=== PATIENT | male | born 1940 | race Caucasian/White ===

== ENCOUNTER 2017-06-15 14:16 | Emergency (ER) | payer MEDICARE, OTHER ==
--- NOTE | 2017-06-15 14:34 | ERPHSYRPT ---
- History of Present Illness Time Seen by Provider: 06/15/17 14:25 Historian: patient Exam Limitations: no limitations Patient Subjective Stated Complaint: c/o Chest pain began [id number] this morning while sitting at home, Pain in epigastric area, states belching a lot today Triage Nursing Assessment: C/o epigastric chest pain, pulses palp, lungs CTA Physician History: The patient is a 76-year-old male with family complaining of sudden onset of epigastric pain shooting through to his back that began shortly after eating toast and grapes for breakfast. He took 2 nitroglycerin without any improvement. He is not any more short of breath than usual. He was not sweaty. At the time he was not nauseated. He has a past medical history of cardiac stents, coronary artery disease, high cholesterol, diabetes, CHF, COPD, and BPH. His past surgical histories include appendectomy and TURP. Timing/Duration: today, hour(s) (5 1/2) Activities at Onset: none Quality: sharpness Location: epigastric Chest Pain Radiation: back Severity of Pain-Max: severe Severity of Pain-Current: severe Modifying Factors: Improves With: nitroglycerin (without change) Associated Symptoms: abdominal pain, back pain, No nausea, No vomiting Prior Chest Pain/Cardiac Workup: cardiac cath, recently seen/treated Nitro Today/Relief: 0.4 mg x 2, provided at home, no relief Aspirin Treatment Today: 325 mg x 1, provided by ED Allergies/Adverse Reactions: No Known Drug Allergies Allergy (Verified 11/13/16 12:40) Home Medications: Clopidogrel Bisulfate 75 mg [PLAVIX 75 MG Tablet] 75 mg PO DAILY 05/30/13 [History] Ezetimibe 10 mg [Zetia 10 MG] 10 mg PO DAILY 05/30/13 [History] Fenofibrate,Micronized 145 mg* [Tricor 145 MG] 145 mg PO HS 05/30/13 [History ] Fluoxetine HCl 20 mg [Prozac 20 MG] 20 mg PO DAILY 05/30/13 [History] Glycopyrrolate [Robinul] 2 mg PO HS 05/30/13 [History] Loratadine 10 mg [Claritin 10 mg] 10 mg PO HS 12/07/13 [History] Pravastatin Sodium [Pravachol] 40 mg PO HS 05/30/13 [History] Tamsulosin HCl 0.4 mg [Flomax 0.4 MG] 0.4 mg PO HS 05/30/13 [History] Aspirin [Aspirin EC] 81 mg PO DAILY 10/29/13 [History] Atenolol [Tenormin] 25 mg PO DAILY 10/29/13 [History] Ferrous Sulfate [Iron] 325 mg PO DAILY 10/29/13 [History] Insulin Glargine [Lantus Insulin] 30 unit SQ HS 10/29/13 [History] Omeprazole 20 MG [Prilosec 20 mg] 20 mg PO DAILY 10/29/13 [History] Potassium Chloride 10 Meq Tab* [Klor Con 10 MEQ] 70 meq PO BID 10/29/13 [ History] Torsemide [Demadex] 40 mg PO DAILY 10/29/13 [History] Vitamin B Complex 1 each PO DAILY 10/29/13 [History] Ascorbic Acid 500 mg [Vitamin C 500 MG] 1,000 mg PO DAILY 11/13/16 [ History] Niacin (Inositol Niacinate) [Niacin 500 mg Capsule] 1,000 mg PO DAILY 11/13/16 [ History] Paricalcitol 2.5 mcg PO DAILY 11/13/16 [History] Pyridoxine HCl (Vitamin B6) [Vitamin B-6] 200 mg PO BID 11/13/16 [History] Ropinirole 2Mg [Requip 2Mg Tab] 4 mg PO HS 11/13/16 [History] Ubidecarenone [Co Q-10] 200 mg PO DAILY 11/13/16 [History] Nitroglycerin 0.4 mg (Ed) [Nitrostat 0.4 MG (ED)] 1 tab SL Q5MIN PRN MR X 3 PRN 06/15/17 [History] Hx Tetanus, Diphtheria Vaccination/Date Given: Yes Hx Influenza Vaccination/Date Given: Yes Hx Pneumococcal Vaccination/Date Given: (unsure) Immunizations Up to Date: Yes - Review of Systems Constitutional: No Fever, No Chills Eyes: No Symptoms Respiratory: No Cough, No Dyspnea Cardiac: Chest Pain Abdominal/Gastrointestinal: Abdominal Pain, Nausea, No Vomiting Genitourinary Symptoms: No Dysuria Musculoskeletal: No Back Pain, No Neck Pain Skin: No Rash Neurological: No Dizziness, No Focal Weakness, No Sensory Changes Psychological: No Symptoms Endocrine: No Symptoms Hematologic/Lymphatic: No Symptoms Immunological/Allergic: No Symptoms All Other Systems: Reviewed and Negative - Past Medical History Pertinent Past Medical History: Yes Neurological History: No Pertinent History ENT History: No Pertinent History Cardiac History: Coronary Artery Disease, High Cholesterol Respiratory History: CHF, COPD, Sleep Apnea Endocrine Medical History: Diabetes Type I Musculoskeletal History: Arthritis GI Medical History: Diverticulitis History: Renal Disease Psycho-Social History: Depression Male Reproductive Disorders: Prostate Problems - Past Surgical History Past Surgical History: Yes Cardiac: Cardiac Catheterization, Cardiac Stent Gastrointestinal: Appendectomy Male Surgical History: Prostate Surgery Other Surgical History: fistula to left arm - Social History Smoking Status: Never smoker Exposure to second hand smoke: No Drug Use: none Patient Lives Alone: No - Nursing Vital Signs Nursing Vital Signs: Initial Vital Signs Temperature 97.3 F 06/15/17 14:17 Pulse Rate 56 L 06/15/17 14:17 Respiratory Rate 20 06/15/17 14:17 Blood Pressure 120/56 06/15/17 14:17 O2 Sat by Pulse Oximetry 97 06/15/17 14:17 Pain Scale Pain Intensity 5 - Physical Exam General Appearance: moderate distress Eye Exam: PERRL/EOMI, eyes nml inspection Ears, Nose, Throat Exam: normal ENT inspection, moist mucous membranes Neck Exam: normal inspection, non-tender, supple, full range of motion Respiratory Exam: normal breath sounds, chest tenderness (palpation of epigastric area reproduces pt's pain), lungs clear, No respiratory distress Cardiovascular Exam: regular rate/rhythm, murmur Gastrointestinal/Abdomen Exam: tenderness (epigastric) Rectal Exam: not done Back Exam: normal inspection, No CVA tenderness, No vertebral tenderness Extremity Exam: normal inspection, normal range of motion Neurologic Exam: alert, oriented x 3, cooperative, normal mood/affect, sensation nml, No motor deficits Skin Exam: normal color, warm, dry SpO2 Interpretation: normal SpO2: 97 Oxygen Delivery: Room Air - Course EKG Interpreted by Me: RATE, Sinus Rhythm, NORMAL AXIS, NORMAL QRS, NORMAL ST-T (no change compared to EKG 10/29/13.) - Radiology Exams Chest X-ray Interpretation: Interpreted by me, Negative (comp CXR 05/30/13.) Ordered Tests: Active Orders 24 hr Category Date Time Status EKG-ER Only STAT Care 06/15/17 14:39 Active IV Insertion STAT Care 06/15/17 14:39 Active Pulse Oximetry (ED) STAT Care 06/15/17 14:41 Active CHEST 2 VIEWS (PA AND LAT) Stat Exams 06/15/17 14:40 Taken CBC W DIFF Stat Lab 06/15/17 14:39 Completed CMP Stat Lab 06/15/17 14:39 Completed LIPASE Stat Lab 06/15/17 14:39 Completed NT PRO BNP Stat Lab 06/15/17 14:41 Completed TROPONIN Q3H Lab 06/15/17 14:43 Completed TROPONIN Q3H Lab 06/15/17 17:45 Ordered TROPONIN Q3H Lab 06/15/17 20:45 Ordered TROPONIN Q3H Lab 06/15/17 23:45 Ordered TROPONIN Q3H Lab 06/16/17 02:45 Ordered UA W/RFX UR CULTURE Stat Lab 06/15/17 14:40 Ordered Medication Summary Discontinued Medications Generic Name Dose Route Start Last Admin Trade Name Freq PRN Reason Stop Dose Admin Al Hydrox/Mg Hydrox/Simethicone Confirm 06/15/17 14:49 Maalox Es 30 Ml Unit Dose Administered 06/15/17 14:50 Dose 30 ml .ROUTE .STK-MED ONE Aspirin 324 mg 06/15/17 14:41 06/15/17 14:46 Baby Aspirin 81 Mg Chew PO 06/15/17 14:42 324 mg STAT ONE Administration Aspirin Confirm 06/15/17 14:48 Baby Aspirin 81 Mg Chew Administered 06/15/17 14:49 Dose 324 mg .ROUTE .STK-MED ONE Famotidine 20 mg 06/15/17 14:39 06/15/17 14:54 Pepcid 20 Mg Vial IV 06/15/17 14:40 20 mg STAT ONE Administration Famotidine Confirm 06/15/17 14:49 Pepcid 20 Mg Vial Administered 06/15/17 14:50 Dose 20 mg IV .STK-MED ONE Lidocaine HCl Confirm 06/15/17 14:49 Xylocaine Hcl Viscous * Administered 06/15/17 14:50 Dose 15 ml .ROUTE .STK-MED ONE Magnesium Hydroxide 45 ml 06/15/17 14:39 06/15/17 14:54 Gi Cocktail 45 Ml (Maalox/Lidocaine) PO 06/15/17 14:40 45 ml STAT ONE Administration Morphine Sulfate 4 mg 06/15/17 15:39 06/15/17 15:49 Morphine Sulfate 4 Mg Inj IV 06/15/17 15:40 4 mg STAT ONE Administration Morphine Sulfate Confirm 06/15/17 15:43 Morphine Sulfate 4 Mg Inj Administered 06/15/17 15:44 Dose 4 mg .ROUTE .STK-MED ONE Nitroglycerin 0.4 mg 06/15/17 14:41 06/15/17 14:46 Nitrostat 0.4 Mg (Ed) SL 06/15/17 14:42 0.4 mg STAT ONE Administration Nitroglycerin Confirm 06/15/17 14:48 Nitrostat 0.4 Mg (Ed) Administered 06/15/17 14:49 Dose 0.4 mg SL .STK-MED ONE Ondansetron HCl 4 mg 06/15/17 14:39 06/15/17 14:54 Zofran 4 Mg/2 Ml Vial IV 06/15/17 14:40 4 mg STAT ONE Administration Ondansetron HCl Confirm 06/15/17 14:48 Zofran 4 Mg/2 Ml Vial Administered 06/15/17 14:49 Dose 4 mg .ROUTE .STK-MED ONE Lab/Rad Data: Laboratory Result Diagrams 06/15/17 14:39 06/15/17 14:39 Laboratory Results 06/15/17 06/15/17 06/15/17 Range/Units 14:43 14:41 14:39 WBC (4.0-10.5) K/mm3 RBC (4.1-5.6) M/mm3 Hgb (12.5-18.0) gm/dl Hct (42-50) % MCV (78-100) fl MCH (26-32) pg MCHC (32-36) g/dl RDW (11.5-14.0) % Plt Count (150-450) K/mm3 MPV (6-9.5) fl Gran % (36.0-66.0) % Lymphocytes % (24.0-44.0) % Monocytes % (0.0-12.0) % Eosinophils % (0.00-5.0) % Basophils % (0.0-0.4) % Basophils # (0-0.4) Sodium 141 (136-145) mEq/L Potassium 3.9 (3.5-5.1) mEq/L Chloride 107 (98-107) mEq/L Carbon Dioxide 26.6 (21-32) mEq/L Anion Gap 11.3 (5-15) MEQ/L BUN 44 H (9-20) mg/dL Creatinine 2.97 H (0.55-1.30) mg/dl Estimated GFR 22 ML/MIN Glucose 162 H (70-110) MG/DL Calcium 10.4 H (8.5-10.1) mg/dL Total Bilirubin 0.60 (0.2-1.0) mg/dL AST 48 H (15-37) U/L ALT 39 (12-78) U/L Alkaline Phosphatase 58 (46-116) U/L Troponin I < 0.017 (0.000-0.056) ng/ml NT-Pro-B Natriuret Pep 2142 H (0-450) pg/ml Serum Total Protein 6.4 (6.4-8.2) gm/dL Albumin 3.3 L (3.4-5.0) g/dL Lipase 63 L (73-393) U/L 06/15/ Range/Units 14:39 WBC 5.0 (4.0-10.5) K/mm3 RBC 3.36 L (4.1-5.6) M/mm3 Hgb 10.6 L (12.5-18.0) gm/dl Hct 34.8 L (42-50) % MCV 103.6 H (78-100) fl MCH 31.5 (26-32) pg MCHC 30.5 L (32-36) g/dl RDW 14.6 H (11.5-14.0) % Plt Count 128 L (150-450) K/mm3 MPV 9.1 (6-9.5) fl Gran % 77.6 H (36.0-66.0) % Lymphocytes % 16.8 L (24.0-44.0) % Monocytes % 4.6 (0.0-12.0) % Eosinophils % 0.6 (0.00-5.0) % Basophils % 0.4 (0.0-0.4) % Basophils # 0.02 (0-0.4) Sodium (136-145) mEq/L Potassium (3.5-5.1) mEq/L Chloride (98-107) mEq/L Carbon Dioxide (21-32) mEq/L Anion Gap (5-15) MEQ/L BUN (9-20) mg/dL Creatinine (0.55-1.30) mg/dl Estimated GFR ML/MIN Glucose (70-110) MG/DL Calcium (8.5-10.1) mg/dL Total Bilirubin (0.2-1.0) mg/dL AST (15-37) U/L ALT (12-78) U/L Alkaline Phosphatase (46-116) U/L Troponin I (0.000-0.056) ng/ml NT-Pro-B Natriuret Pep (0-450) pg/ml Serum Total Protein (6.4-8.2) gm/dL Albumin (3.4-5.0) g/dL Lipase (73-393) U/L - Progress Progress: improved Air Movement: good Progress Note: 06/15/17 16:After a GI cocktail, famotidine 20 mg by IV, Zofran 4 mg by IV, the patient was feeling much better. The patient wanted some morphine and then was given morphine 4 mg by IV. Now the patient is feeling much better and wishes to go home. Blood Culture(s) Obtained: No Antibiotics given: No Counseled pt/family regarding: lab results, diagnosis, rad results - Departure Time of Disposition: 16:25 Departure Disposition: Home Clinical Impression: Reflux gastritis Condition: Stable Critical Care Time: No Referrals: HARRIS ALLISON [Primary Care Provider] - Additional Instructions: You have epigastric pain that was caused by reflux. You were given nitroglycerin 0.4 mg sublingual and aspirin 324 mg orally in the ER. You were also given a GI cocktail orally in the ER. You're also given famotidine 20 mg, Zofran 4 mg, and morphine 4 mg by IV in the ER. Eat a bland diet for the next 3 -4 days. If the pain returns, do not hesitate to return to the ER for reevaluation.
[2017-06-15] MEDS ORDERED: GI COCKTAIL 45 ML (Maalox/Lidocaine) PO ONE (14:39)
[2017-06-15] MEDS ORDERED: Zofran 4 MG/2 ML VIAL IV ONE (14:39)
[2017-06-15] MEDS ORDERED: Pepcid 20 MG VIAL IV ONE ×2 (14:39→14:49)
[2017-06-15] MEDS ORDERED: Nitrostat 0.4 MG (ED) SL ONE ×2 (14:41→14:48)
[2017-06-15] MEDS ORDERED: BABY ASPIRIN 81 MG CHEW PO ONE (14:41)
[2017-06-15] MEDS ORDERED: BABY ASPIRIN 81 MG CHEW ONE (14:48)
[2017-06-15] MEDS ORDERED: Zofran 4 MG/2 ML VIAL ONE (14:48)
[2017-06-15] MEDS ORDERED: MAALOX ES 30 ML UNIT DOSE ONE (14:49)
[2017-06-15] MEDS ORDERED: XYLOCAINE HCl Viscous ONE (14:49)
[2017-06-15 15:00] LABS: BASOPHIL % 0.4 % (0.0-0.4); Eosinophil % 0.6 % (0.00-5.0); Granulocytes % 77.6 % (36.0-66.0); Lymphocytes % 16.8 % (24.0-44.0); Mean Cell Volume 103.6 fl (78-100); Mean Corpuscular Hemoglobin 31.5 pg (26-32); Mean Platelet Volume 9.1 fl (6-9.5); Monocytes % 4.6 % (0.0-12.0); Platelet Count 128 K/mm3 (150-450); Red Blood Count 3.36 M/mm3 (4.1-5.6); Red Cell Distribution Width 14.6 % (11.5-14.0)
[2017-06-15 15:08] LABS: ALBUMIN 3.3 g/dL (3.4-5.0); ANION GAP 11.3 MEQ/L (5-15); BILIRUBIN,TOTAL 0.6 mg/dL (0.2-1.0); Carbon Dioxide 26.6 mEq/L (21-32); Potassium 3.9 mEq/L (3.5-5.1); Total Protein 6.4 gm/dL (6.4-8.2)
[2017-06-15] MEDS ORDERED: MORPHINE SULFATE 4 MG INJ IV ONE (15:39)
[2017-06-15] MEDS ORDERED: MORPHINE SULFATE 4 MG INJ ONE (15:43)
[2017-06-15 15:50] VITALS: BP 118/48; PULSE 59; O2SAT 97
--- NOTE | 2017-06-15 18:47 | XRAY ---
Indication: Chest pain and nausea. Comparison: May 30, 2013. PA/lateral chest again hyperinflated without focal infiltrate, consolidation, or large effusion. Heart is not enlarged. Vascularity normal. Bony thorax intact again with mild osteopenia and degenerative changes. Impression: Stable nonacute hyperinflated chest with chronic features.
== END 2017-06-15 16:46 | disposition home or self-care (01) ==
LOC: ED 14:16
DX: K21.9 Gastro-esophageal reflux disease without esophagitis (principal); Z98.61 Coronary angioplasty status; I25.10 Atherosclerotic heart disease of native coronary artery without angina pectoris; E78.00 Pure hypercholesterolemia, unspecified; E11.9 Type 2 diabetes mellitus without complications; I50.9 Heart failure, unspecified; J44.9 Chronic obstructive pulmonary disease, unspecified; N40.0 Benign prostatic hyperplasia without lower urinary tract symptoms; R10.13 Epigastric pain
CPT/HCPCS: 36000; 36415; 71020; 80053; 83690; 83880; 84484; 85025; 93005; 99284; J2270; J2405; A9270-GY

== ENCOUNTER 2017-10-11 12:05 | Emergency (ER) | payer MEDICARE, OTHER ==
[2017-10-11 12:19] VITALS: O2SAT 100
--- NOTE | 2017-10-11 12:30 | ERPHSYRPT ---
- History of Present Illness Time Seen by Provider: 10/11/17 12:20 Source: patient, family Exam Limitations: no limitations Patient Subjective Stated Complaint: pt reports falling onto back-reports pain to back Triage Nursing Assessment: pt arrives ambulatory to ed with no difficulty-no limp noted-pale warm and dry-no abrasions or bruising to back-bruising noted to flank area-pt states it is not from fall-moving all extremities with ease Physician History: Pt was stepping off a small elevation in his yard, turned, when he lost his balance, fell on his back, hit the back of his head, c/o pain in his upper back. His brother witnessed the fall, denies LOC, patient is alert and oriented x4, denies SOB, chest pain, nausea, dizziness, other complaints. Occurred: just prior to arrival Reason for Fall: lost balance Injuries/Pain Location: head, back Loss of Consciousness: no loss of consciousness Quality: sharpness Severity of Pain-Max: moderate Severity of Pain-Current: mild Modifying Factors: Improves With: movement Associated Symptoms (Fall): back pain Allergies/Adverse Reactions: No Known Drug Allergies Allergy (Verified 10/11/17 12:19) Home Medications: Clopidogrel Bisulfate 75 mg [PLAVIX 75 MG Tablet] 75 mg PO DAILY 05/30/13 [History] Ezetimibe 10 mg [Zetia 10 MG] 10 mg PO DAILY 05/30/13 [History] Fenofibrate,Micronized 145 mg* [Tricor 145 MG] 145 mg PO HS 05/30/13 [History ] Fluoxetine HCl 20 mg [Prozac 20 MG] 20 mg PO DAILY 05/30/13 [History] Glycopyrrolate [Robinul] 2 mg PO HS 05/30/13 [History] Loratadine 10 mg [Claritin 10 mg] 10 mg PO HS 05/30/13 [History] Pravastatin Sodium [Pravachol] 40 mg PO HS 05/30/13 [History] Tamsulosin HCl 0.4 mg [Flomax 0.4 MG] 0.4 mg PO HS 05/30/13 [History] Aspirin [Aspirin EC] 81 mg PO DAILY 10/29/13 [History] Atenolol [Tenormin] 25 mg PO DAILY 10/29/13 [History] Ferrous Sulfate [Iron] 325 mg PO DAILY 10/29/13 [History] Insulin Glargine [Lantus Insulin] 30 unit SQ HS 10/29/13 [History] Omeprazole 20 MG [Prilosec 20 mg] 20 mg PO DAILY 10/29/13 [History] Potassium Chloride 10 Meq Tab* [Klor Con 10 MEQ] 70 meq PO BID 10/29/13 [ History] Torsemide [Demadex] 40 mg PO DAILY 10/29/13 [History] Vitamin B Complex 1 each PO DAILY 10/29/13 [History] Ascorbic Acid 500 mg [Vitamin C 500 MG] 1,000 mg PO DAILY 11/13/16 [ History] Niacin (Inositol Niacinate) [Niacin 500 mg Capsule] 1,000 mg PO DAILY 11/13/16 [ History] Paricalcitol 2.5 mcg PO DAILY 11/13/16 [History] Pyridoxine HCl (Vitamin B6) [Vitamin B-6] 200 mg PO BID 11/13/16 [History] Ropinirole 2Mg [Requip 2Mg Tab] 4 mg PO HS 11/13/16 [History] Ubidecarenone [Co Q-10] 200 mg PO DAILY 11/13/16 [History] Nitroglycerin 0.4 mg (Ed) [Nitrostat 0.4 MG (ED)] 1 tab SL Q5MIN PRN MR X 3 PRN 06/15/17 [History] Hx Tetanus, Diphtheria Vaccination/Date Given: Yes Hx Influenza Vaccination/Date Given: Yes Hx Pneumococcal Vaccination/Date Given: Yes Immunizations Up to Date: Yes - Review of Systems Constitutional: No Symptoms Musculoskeletal: Back Pain All Other Systems: Reviewed and Negative - Past Medical History Pertinent Past Medical History: Yes Neurological History: No Pertinent History ENT History: No Pertinent History Cardiac History: Coronary Artery Disease, High Cholesterol Respiratory History: CHF, COPD, Sleep Apnea Endocrine Medical History: Diabetes Type I Musculoskeletal History: Arthritis GI Medical History: Diverticulitis History: Renal Disease Psycho-Social History: Depression Male Reproductive Disorders: Prostate Problems - Past Surgical History Past Surgical History: Yes Cardiac: Cardiac Catheterization, Cardiac Stent Gastrointestinal: Appendectomy Male Surgical History: Prostate Surgery Other Surgical History: fistula to left arm - Social History Smoking Status: Never smoker Exposure to second hand smoke: No Drug Use: none Patient Lives Alone: No - Nursing Vital Signs Nursing Vital Signs: Initial Vital Signs Temperature 98.0 F 10/11/17 12:10 Pulse Rate 78 10/11/17 12:10 Respiratory Rate 18 10/11/17 12:10 Blood Pressure 126/68 10/11/17 12:10 O2 Sat by Pulse Oximetry 100 10/11/17 12:10 Pain Scale Pain Intensity 6 - Michael Coma Score Best Eye Response (Michael): (4) open spontaneously Best Verbal Response (Michael): (5) oriented Best Motor Response ([place]): (6) obeys commands [place] Total: 15 - Physical Exam General Appearance: no apparent distress Head Injury: tenderness (occipital soft tissue, no swelling, hematoma.) Eye Exam: PERRL/EOMI, eyes nml inspection ENT Exam: airway nml, No evidence of ENT injury Neck Exam: supple, trachea midline, full range of motion, normal alignment, normal inspection, paraspinous muscle tender (diffisue, bilateral) Respiratory/Chest Exam: normal breath sounds, No chest tenderness, No respiratory distress, No ecchymosis, No crepitus Cardiovascular Exam: normal heart sounds, regular rate/rhythm, normal peripheral pulses, No murmur, No edema, No JVD Gastrointestinal Exam: soft, normal bowel sounds, No tenderness, No distention, No mass, No ecchymosis Back Exam: normal inspection, other (diffuse, bilateral, parathoracic tendernes , no swelling, bruise, or crepitations.), No CVA tenderness, No vertebral tenderness Extremity Exam: normal inspection, pelvis stable, No contusions Peripheral Pulses: carotid (R): 3+, carotid (L): 3+, dorsalis-pedis (R): 2+, dorsalis-pedis (L): 2+ Neurologic Exam: alert, oriented x 3, cooperative, normal mood/affect Skin Exam: normal color, warm, dry SpO2 Interpretation: normal SpO2: 100 Oxygen Delivery: Room Air - Course Nursing assessment & vital signs reviewed: Yes - Radiology Exams Chest X-ray Interpretation: Reviewed by me, Negative - CT Exams Head CT Interpretation: Negative, Tele-radiologist Report Cervical Spine CT Interpretation: Negative, Tele-radiologist Report Thoracic Spine CT Interpretation: Negative, Tele-radiologist Report, DJD Ordered Tests: Active Orders 24 hr Category Date Time Status CERVICAL SPINE WO CONTRAST [CT] Stat Exams 10/11/17 12:21 Completed CHEST 1 VIEW (PORTABLE) Stat Exams 10/11/17 12:21 Completed HEAD WITHOUT CONTRAST [CT] Stat Exams 10/11/17 12:21 Completed THORACIC SPINE W/O CONTRAST [CT] Stat Exams 10/11/17 12:21 Completed - Progress Progress: unchanged Progress Note: 10/11/17 13:43 Pt is comfortable, when resting, denies severe pain or difficulty breathing. 10/11/17 13:46 Test results discussed with patient and his brother, instructions, given, he was given Percocet 5/325 PO Q6h PRN, # 10 tablets. - Departure Time of Disposition: 13:43 Departure Disposition: Home Clinical Impression: Back contusion Qualifiers: Encounter type: initial encounter Laterality: unspecified laterality Qualified Code(s): S20.229A - Contusion of unspecified back wall of thorax, initial encounter Head contusion Qualifiers: Encounter type: initial encounter Contusion of head detail: scalp Qualified Code(s): S00.03XA - Contusion of scalp, initial encounter Contusion of back wall of thorax Qualifiers: Encounter type: initial encounter Laterality: unspecified laterality Qualified Code(s): S20.229A - Contusion of unspecified back wall of thorax, initial encounter Condition: Stable Critical Care Time: No Referrals: HARRIS ALLISON [Primary Care Provider] - Instructions: Contusion (DC), Minor Head Injury (DC) Additional Instructions: Rest x 3-4 days, apply moist heat to painful areas, return if severe headaches, vomiting, confusion, lethargy or difficulty breathing, fever>101 F!
--- NOTE | 2017-10-11 13:23 | XRAY ---
Indication: Pain following fall. Multiple contiguous axial images obtained through the head without contrast. Comparison: None Age-appropriate global atrophy and minimal periventricular degenerative micro-ischemia. No acute intracranial hemorrhage, abnormal extra-axial fluid collection, or mass effect. Fourth ventricle is midline without hydrocephalus. Bony calvarium intact. Visualized paranasal sinuses and mastoid air cells are clear. Impression: Nonacute senile brain. CTDI 49.27
--- NOTE | 2017-10-11 13:25 | XRAY ---
Indication: Pain following fall. Comparison: June 15, 2017. Portable chest remains hyperinflated and clear. Heart and mediastinal structures within normal limits. Bony thorax intact again with mild osteopenia and degenerative changes. Impression: Stable nonacute hyperinflated chest.
--- NOTE | 2017-10-11 13:29 | XRAY ---
Indication: Pain following fall. Multiple contiguous axial images obtained through the cervical spine. Sagittal and coronal reformatted images obtained. Comparison: None Axial images negative for acute fracture, suspicious bony lesions, or spinal canal stenosis. Minimal C4-C7 degenerative endplate spurring. Tiny C4-C5 and C7-T1 degenerative vacuum disc phenomena. Also mild multilevel bilateral degenerative facet hypertrophy, left greater than right. Sagittal and coronal reformatted images demonstrates normal alignment with mild multilevel disc space narrowing greatest at the C7-T1 level. No acute compression fracture, subluxation, or jumped facet. Normal-appearing craniocervical junction. Visualized noncontrasted soft tissues demonstrates mild bilateral carotid calcifications. CT head and CT thoracic spine reported separately. Impression: 1. Negative acute fracture/subluxation. 2. Multilevel degenerative changes. CT DI 93.46
--- NOTE | 2017-10-11 13:36 | XRAY ---
Indication: Pain following fall. Multiple contiguous axial images obtained through the thoracic spine. Sagittal and coronal reformatted images obtained. Comparison: None Axial images negative for acute fracture, suspicious bony lesions, or spinal canal stenosis. There are multilevel flowing bridging endplate osteophytes favoring diffuse idiopathic skeletal hyperostosis (also known as DISH). Sagittal and coronal reformatted images demonstrates with multilevel tiny Schmorl nodes. Disc spaces maintained. No acute compression fracture or subluxation. Visualized noncontrasted soft tissues demonstrates minimal bilateral pulmonary dependent atelectasis and hepatic/splenic calcified granulomas. CT cervical spine reported separately. Impression: 1. Negative acute fracture/subluxation. 2. Multilevel flowing osteophytes favoring DISH. 3. Incidental tiny Schmorl nodes and evidence for old granulomatous disease. CT DI 60.36
[2017-10-11 13:41] VITALS: BP 114/57; PULSE 70
== END 2017-10-11 13:53 | disposition home or self-care (01) ==
LOC: ED 12:05
DX: S20.229A Contusion of unspecified back wall of thorax, initial encounter (principal); S00.03XA Contusion of scalp, initial encounter; M54.9 Dorsalgia, unspecified; W01.198A Fall on same level from slipping, tripping and stumbling with subsequent striking against other object, initial encounter; Y93.9 Activity, unspecified; Y92.096 Garden or yard of other non-institutional residence as the place of occurrence of the external cause; E10.9 Type 1 diabetes mellitus without complications; Z79.4 Long term (current) use of insulin; I25.10 Atherosclerotic heart disease of native coronary artery without angina pectoris; E78.00 Pure hypercholesterolemia, unspecified; I50.9 Heart failure, unspecified; J44.9 Chronic obstructive pulmonary disease, unspecified; G47.30 Sleep apnea, unspecified; M19.90 Unspecified osteoarthritis, unspecified site; F32.9 Major depressive disorder, single episode, unspecified; N28.9 Disorder of kidney and ureter, unspecified; Z79.899 Other long term (current) drug therapy
CPT/HCPCS: 70450; 71045; 72125; 72128; 99283; 99284

== ENCOUNTER 2017-12-18 13:05 | Emergency (ER) | payer MEDICARE, OTHER ==
--- NOTE | 2017-12-18 14:20 | ERPHSYRPT ---
- History of Present Illness Time Seen by Provider: 12/18/17 14:02 Source: patient Exam Limitations: no limitations Patient Subjective Stated Complaint: Pt states "I was at dialysis this morning and this left ankle and foot just started to hurt something awful." Triage Nursing Assessment: Pt alert and oriented X 3, skin pwd PT ambulates with a slow limp. Pt left ankle slightly swollen, left foot slightly swollen. Physician History: The patient is a 77-year-old male complaining of worsening pain and swelling in his left ankle since yesterday. He denies injury to the ankle. It is painful for him to walk on it. Is painful for him to move it back and forth. He has a history of gout but has not taken medicine for gout for several years. His past medical history is significant for diabetes, dialysis, high cholesterol, GERD, CAD, hypertension, and BPH. Method of Injury: unknown Occurred: yesterday Quality: constant, sharpness Severity of Pain-Max: severe Severity of Pain-Current: severe Lower Extremities Pain: ankle: left Modifying Factors: Improves With: nothing Associated Symptoms: none Allergies/Adverse Reactions: No Known Drug Allergies Allergy (Verified 10/11/17 12:19) Home Medications: Clopidogrel Bisulfate 75 mg [PLAVIX 75 MG Tablet] 75 mg PO DAILY 05/30/13 [History] Ezetimibe 10 mg [Zetia 10 MG] 10 mg PO DAILY 05/30/13 [History] Fenofibrate,Micronized 145 mg* [Tricor 145 MG] 145 mg PO HS 05/30/13 [History ] Fluoxetine HCl 20 mg [Prozac 20 MG] 20 mg PO DAILY 05/30/13 [History] Glycopyrrolate [Robinul] 2 mg PO HS 05/30/13 [History] Loratadine 10 mg [Claritin 10 mg] 10 mg PO HS 05/30/13 [History] Pravastatin Sodium [Pravachol] 40 mg PO HS 05/30/13 [History] Tamsulosin HCl 0.4 mg [Flomax 0.4 MG] 0.4 mg PO HS 05/30/13 [History] Aspirin [Aspirin EC] 81 mg PO DAILY 10/29/13 [History] Atenolol [Tenormin] 25 mg PO DAILY 10/29/13 [History] Ferrous Sulfate [Iron] 325 mg PO DAILY 10/29/13 [History] Insulin Glargine [Lantus Insulin] 30 unit SQ HS 10/29/13 [History] Omeprazole 20 MG [Prilosec 20 mg] 20 mg PO DAILY 10/29/13 [History] Torsemide [Demadex] 40 mg PO DAILY 10/29/13 [History] Vitamin B Complex 1 each PO DAILY 10/29/13 [History] Ascorbic Acid 500 mg [Vitamin C 500 MG] 1,000 mg PO DAILY 11/13/16 [ History] Niacin (Inositol Niacinate) [Niacin 500 mg Capsule] 1,000 mg PO DAILY 11/13/16 [ History] Paricalcitol 2.5 mcg PO DAILY 11/13/16 [History] Pyridoxine HCl (Vitamin B6) [Vitamin B-6] 200 mg PO BID 11/13/16 [History] Ropinirole 2Mg [Requip 2Mg Tab] 4 mg PO HS 11/13/16 [History] Ubidecarenone [Co Q-10] 200 mg PO DAILY 11/13/16 [History] Nitroglycerin 0.4 mg (Ed) [Nitrostat 0.4 MG (ED)] 1 tab SL Q5MIN PRN MR X 3 PRN 06/15/17 [History] Hx Tetanus, Diphtheria Vaccination/Date Given: No Hx Influenza Vaccination/Date Given: Yes Hx Pneumococcal Vaccination/Date Given: No Immunizations Up to Date: Yes - Review of Systems Constitutional: No Fever, No Chills Eyes: No Symptoms Ears, Nose, & Throat: No Symptoms Respiratory: No Cough, No Dyspnea Cardiac: No Chest Pain, No Edema, No Syncope Abdominal/Gastrointestinal: No Abdominal Pain, No Nausea, No Vomiting, No Diarrhea Genitourinary Symptoms: No Dysuria Musculoskeletal: Joint Pain, Joint Swelling Skin: No Rash Neurological: No Dizziness, No Focal Weakness, No Sensory Changes Psychological: No Symptoms Endocrine: No Symptoms Hematologic/Lymphatic: No Symptoms Immunological/Allergic: No Symptoms All Other Systems: Reviewed and Negative - Past Medical History Pertinent Past Medical History: Yes Neurological History: No Pertinent History ENT History: No Pertinent History Cardiac History: Coronary Artery Disease, High Cholesterol Respiratory History: CHF, COPD, Sleep Apnea Endocrine Medical History: Diabetes Type I Musculoskeletal History: Arthritis GI Medical History: Diverticulitis History: Renal Disease Psycho-Social History: Depression Male Reproductive Disorders: Prostate Problems - Past Surgical History Past Surgical History: Yes Cardiac: Cardiac Catheterization, Cardiac Stent Gastrointestinal: Appendectomy Male Surgical History: Prostate Surgery Other Surgical History: fistula to left arm - Social History Smoking Status: Former smoker Exposure to second hand smoke: No Drug Use: none Patient Lives Alone: Yes - Nursing Vital Signs Nursing Vital Signs: Initial Vital Signs Temperature 97.6 F 12/18/17 13:12 Pulse Rate 67 12/18/17 13:12 Respiratory Rate 18 12/18/17 13:12 Blood Pressure 115/73 12/18/17 13:12 O2 Sat by Pulse Oximetry 98 12/18/17 13:12 Pain Scale Pain Intensity 5 - Physical Exam General Appearance: alert Eyes, Ears, Nose, Throat Exam: moist mucous membranes Neck Exam: non-tender, supple Cardiovascular/Respiratory Exam: chest non-tender, normal breath sounds, regular rate/rhythm, no respiratory distress Gastrointestinal/Abdominal Exam: non-tender, guarding Back Exam: normal inspection, No vertebral tenderness Hips Exam: bilateral: non-tender, normal inspection, normal range of motion Legs Exam: bilateral leg: non-tender, normal inspection, normal range of motion Knees Exam: bilateral knee: non-tender, normal inspection, normal range of motion Ankle Exam: right ankle: non-tender, normal inspection, normal range of motion, left ankle: limited range of motion, pain, soft tissue tenderness, swelling, other (mild erythema) Foot Exam: bilateral foot: non-tender, normal inspection, normal range of motion Neuro/Tendon Exam: normal sensation, normal motor functions Mental Status Exam: alert, oriented x 3, cooperative Skin Exam: normal color, warm, dry SpO2 Interpretation: normal SpO2: 98 Oxygen Delivery: Room Air Ordered Tests: Active Orders 24 hr Category Date Time Status BMP Stat Lab 12/18/17 14:35 Completed CBC W DIFF Stat Lab 12/18/17 14:35 Completed D-DIMER QUANTITATION Stat Lab 12/18/17 14:35 Received Uric Acid Stat Lab 12/18/17 14:35 Completed Lab/Rad Data: Laboratory Result Diagrams 12/18/17 14:35 12/18/17 14:35 Laboratory Results 12/18/17 12/18/17 12/18/17 Range/Units 14:35 14:35 14:35 WBC 6.4 (4.0-10.5) K/mm3 RBC 2.86 L (4.1-5.6) M/mm3 Hgb 9.9 L (12.5-18.0) gm/dl Hct 30.6 L (42-50) % MCV 107.0 H (78-100) fl MCH 34.6 H (26-32) pg MCHC 32.4 (32-36) g/dl RDW 13.5 (11.5-14.0) % Plt Count 144 L (150-450) K/mm3 MPV 8.4 (6-9.5) fl Gran % 68.4 H (36.0-66.0) % Eos # (Auto) 0.06 (0-0.5) Absolute Lymphs (auto) 1.37 (1.0-4.6) Absolute Monos (auto) 0.58 (0.0-1.3) Lymphocytes % 21.4 L (24.0-44.0) % Monocytes % 9.1 (0.0-12.0) % Eosinophils % 0.9 (0.00-5.0) % Basophils % 0.2 (0.0-0.4) % Absolute Granulocytes 4.38 (1.4-6.9) Basophils # 0.01 (0-0.4) Sodium 142 (137-145) mmol/L Potassium 3.7 (3.5-5.1) mmol/L Chloride 102 (98-107) mmol/L Carbon Dioxide 31 H (22-30) mmol/L Anion Gap 12.8 (5-15) MEQ/L BUN 47 H (9-20) mg/dL Creatinine 1.94 H (0.66-1.25) mg/dL Estimated GFR 35.9 ML/MIN Glucose 153 H (74-106) mg/dL Uric Acid 6.9 (3.5-7.2) mg/dL Calcium 10.0 (8.4-10.2) mg/dL - Departure Time of Disposition: 15:24 Departure Disposition: Home Clinical Impression: Left ankle pain Condition: Stable Critical Care Time: No Referrals: HARRIS ALLISON [Primary Care Provider] - Additional Instructions: You have left ankle pain and swelling. Your uric acid level was normal, however this does not exclude gout. Take prednisone 40 mg daily for 5 days. Take Tylenol 1000 mg every 6-8 hours as needed. Follow-up in one to 2 days if the condition does not respond. Prescriptions: Prednisone 20 mg [Deltasone 20 mg] 2 tab PO DAILY #10 tablet
[2017-12-18 14:54] LABS: BASOPHIL % 0.2 % (0.0-0.4); Basophil (Absolute #) 0.01 (0-0.4); Eosinophil % 0.9 % (0.00-5.0); Eosinophil (Absolute #) 0.06 (0-0.5); Granulocyte Absolute (ANC) 4.38 (1.4-6.9); Granulocytes % 68.4 % (36.0-66.0); Hematocrit 30.6 % (42-50); Hemoglobin 9.9 gm/dl (12.5-18.0); Lymphocyte (Absolute #) 1.37 (1.0-4.6); Lymphocytes % 21.4 % (24.0-44.0); Mean Corpuscular Hemoglobin 34.6 pg (26-32); Mean Corpuscular Hgb Concent. 32.4 g/dl (32-36); Mean Platelet Volume 8.4 fl (6-9.5); Monocyte (Absolute #) 0.58 (0.0-1.3); Monocytes % 9.1 % (0.0-12.0); Platelet Count 144 K/mm3 (150-450); Red Blood Count 2.86 M/mm3 (4.1-5.6); Red Cell Distribution Width 13.5 % (11.5-14.0); White Blood Count 6.4 K/mm3 (4.0-10.5)
[2017-12-18 15:10] LABS: ANION GAP 12.8 MEQ/L (5-15); Creatinine 1 1.94 mg/dL (0.66-1.25); Potassium 3.7 mmol/L (3.5-5.1)
[2017-12-18 15:38] VITALS: BP 134/58; PULSE 61; O2SAT 99
== END 2017-12-18 15:52 | disposition home or self-care (01) ==
LOC: ED 13:05
DX: M25.572 Pain in left ankle and joints of left foot (principal); M25.472 Effusion, left ankle; I25.10 Atherosclerotic heart disease of native coronary artery without angina pectoris; E78.00 Pure hypercholesterolemia, unspecified; J44.9 Chronic obstructive pulmonary disease, unspecified; G47.30 Sleep apnea, unspecified; E10.65 Type 1 diabetes mellitus with hyperglycemia; M19.90 Unspecified osteoarthritis, unspecified site; F32.9 Major depressive disorder, single episode, unspecified; N28.9 Disorder of kidney and ureter, unspecified; Z79.899 Other long term (current) drug therapy
CPT/HCPCS: 36415; 80048; 84550; 85025; 85379; 99283

== ENCOUNTER 2018-08-05 13:42 | Emergency (ER) | payer MEDICARE, OTHER ==
[2018-08-05 14:13] VITALS: O2SAT 96
--- NOTE | 2018-08-05 15:24 | XRAY ---
Indication: Right hip/leg pain. Multiple contiguous axial images obtained through the lumbar spine. Sagittal and coronal reformatted images obtained. Comparison: None Mild age-related bony osteopenia with multilevel endplate spurring. Axial images at the T12-L3 levels demonstrates degenerative vacuum disc phenomena. No large disc herniation or spinal canal stenosis. Facets are symmetric. At the L3-L4 level, there is mild annular disc osteophyte complex slightly effacing thecal sac and producing spinal canal narrowing and bilateral foraminal stenosis. No large disc herniation. Mild bilateral degenerative facet arthropathy. At the L4-L5 level, there is spinal canal and bilateral foraminal stenosis due to moderate annular disc osteophyte complex and moderate bilateral degenerative facet hypertrophy. Mean AP spinal canal diameter is 5-6 mm. Suspect impingement of the exiting right L4 nerve root. At the L5-S1 level, there is left foraminal narrowing due to broad-based disc osteophyte complex. No large central disc herniation or canal stenosis. Mild bilateral degenerative facet arthropathy. Sagittal and coronal reformatted images demonstrates normal alignment with multilevel disc space narrowing and multilevel Schmorl nodes. No acute compression fracture or subluxation. Visualized noncontrasted soft tissues demonstrates tiny gallstones, hepatic/splenic calcified granulomas, sigmoid diverticulosis, and mild scattered aortoiliac calcifications. Impression: 1. Osteopenia and multilevel degenerative disc disease. Greatest extent at L4-L5 level with there is spinal canal and foraminal stenosis detailed above. Outpatient MRI may yield further information. 2. Negative acute fracture/subluxation. 3. Incidental multilevel Schmorl nodes, gallstones, sigmoid diverticulosis, and evidence for old granulomatous disease. CTDI 58.64
[2018-08-05 15:37] VITALS: PULSE 87
--- NOTE | 2018-08-05 17:14 | ERPHSYRPT ---
- History of Present Illness Source: patient Exam Limitations: no limitations Patient Subjective Stated Complaint: patient states that he has had worsening hip and leg pain on the right side that started in May 2018. He has been in touch with a Dr to do surgery but needs to have an MRI and CT scan and X-Ray taken before he is accepted. Triage Nursing Assessment: patient states he has pain in his right hip and leg when relaxing at a 4, but anytime he moves it shoots to a 10. Patient is A &O X4. Lungs clear, skin pink warm and dry. He is a diabetic and is on dialysis. He reports feeling numb in his right lower extremity. Legs are swollen bilaterally and patient states this is chronic for him Physician History: Pt is a 77 y/o male with progressive weakness, and numbness of the R LE. Pt states, was diagnosed with sciatica in May, and had PT for a while with no improvement. Pt feels that any movement of his R LE causing him pain that moves from the buttox posteriorly towards the heel. Pt states, has decrease in sensation in that leg as well. Occurred: other (Getting progressivly worse over two months) Lower Extremities Pain: hip: right, leg: right, knee: right, thigh: right, foot : right, ankle: right, heel: right Modifying Factors: Improves With: nothing Associated Symptoms: other (change in sensation) Allergies/Adverse Reactions: No Known Drug Allergies Allergy (Verified 10/11/17 12:19) Home Medications: Clopidogrel Bisulfate 75 mg [PLAVIX 75 MG Tablet] 75 mg PO DAILY 05/30/13 [History] Ezetimibe 10 mg [Zetia 10 MG] 10 mg PO DAILY 05/30/13 [History] Fenofibrate,Micronized 145 mg* [Tricor 145 MG] 145 mg PO HS 05/30/13 [History ] Fluoxetine HCl 20 mg [Prozac 20 MG] 20 mg PO DAILY 05/30/13 [History] Glycopyrrolate [Robinul] 2 mg PO HS 05/30/13 [History] Loratadine 10 mg [Claritin 10 mg] 10 mg PO HS 05/30/13 [History] Pravastatin Sodium [Pravachol] 40 mg PO HS 05/30/13 [History] Tamsulosin HCl 0.4 mg [Flomax 0.4 MG] 0.4 mg PO HS 05/30/13 [History] Aspirin [Aspirin EC] 81 mg PO DAILY 10/29/13 [History] Atenolol [Tenormin] 25 mg PO DAILY 10/29/13 [History] Ferrous Sulfate [Iron] 325 mg PO DAILY 10/29/13 [History] Insulin Glargine [Lantus Insulin] 30 unit SQ HS 10/29/13 [History] Omeprazole 20 MG [Prilosec 20 mg] 20 mg PO DAILY 10/29/13 [History] Torsemide [Demadex] 40 mg PO DAILY 10/29/13 [History] Vitamin B Complex 1 each PO DAILY 10/29/13 [History] Ascorbic Acid 500 mg [Vitamin C 500 MG] 1,000 mg PO DAILY 11/13/16 [ History] Niacin (Inositol Niacinate) [Niacin 500 mg Capsule] 1,000 mg PO DAILY 11/13/16 [ History] Paricalcitol 2.5 mcg PO DAILY 11/13/16 [History] Pyridoxine HCl (Vitamin B6) [Vitamin B-6] 200 mg PO BID 11/13/16 [History] Ropinirole 2Mg [Requip 2Mg Tab] 4 mg PO HS 11/13/16 [History] Ubidecarenone [Co Q-10] 200 mg PO DAILY 11/13/16 [History] Nitroglycerin 0.4 mg (Ed) [Nitrostat 0.4 MG (ED)] 1 tab SL Q5MIN PRN MR X 3 PRN 06/15/17 [History] Hx Tetanus, Diphtheria Vaccination/Date Given: No Hx Influenza Vaccination/Date Given: No Hx Pneumococcal Vaccination/Date Given: No Immunizations Up to Date: Yes - Review of Systems Constitutional: No Fever, No Chills Respiratory: No Cough, No Dyspnea Cardiac: No Chest Pain, No Edema, No Syncope Abdominal/Gastrointestinal: No Abdominal Pain, No Nausea, No Vomiting, No Diarrhea Musculoskeletal: Arthralgias, Joint Pain Neurological: Parasthesia - Past Medical History Pertinent Past Medical History: Yes Neurological History: Peripheral Neuropathy ENT History: No Pertinent History Cardiac History: Angina, Coronary Artery Disease, High Cholesterol, Other Respiratory History: CHF, COPD, Sleep Apnea Endocrine Medical History: Diabetes Type II Musculoskeletal History: Arthritis GI Medical History: No Pertinent History History: Dialysis, Renal Disease Psycho-Social History: Depression Male Reproductive Disorders: Prostate Problems Other Medical History: hypotension, TURP - Past Surgical History Past Surgical History: Yes Neuro Surgical History: No Pertinent History Cardiac: Cardiac Catheterization, Cardiac Stent Respiratory: No Pertinent History Gastrointestinal: Appendectomy Genitourinary: No Pertinent History Musculoskeletal: No Pertinent History Male Surgical History: Prostate Surgery Other Surgical History: fistula to left arm - Social History Smoking Status: Former smoker Exposure to second hand smoke: No Drug Use: none Patient Lives Alone: Yes - Nursing Vital Signs Nursing Vital Signs: Initial Vital Signs Temperature 97.6 F 08/05/18 13:43 Pulse Rate 59 L 08/05/18 13:43 Respiratory Rate 18 08/05/18 13:43 Blood Pressure 114/47 08/05/18 13:43 O2 Sat by Pulse Oximetry 96 08/05/18 13:43 Pain Scale Pain Intensity [Right Hip] 4 Pain Intensity 4 - Physical Exam General Appearance: alert Cardiovascular/Respiratory Exam: chest non-tender, normal breath sounds, regular rate/rhythm, no respiratory distress Gastrointestinal/Abdominal Exam: non-tender, guarding Hips Exam: right: limited range of motion, pain Legs Exam: right leg: limited range of motion, pain Knees Exam: right knee: pain Neuro/Tendon Exam: sensory deficit (R LE) SpO2: 96 - Course Nursing assessment & vital signs reviewed: Yes - CT Exams Lumbar Spine CT Interpretation: Other (L4-5 spinal canal and foraminal stenosis) Ordered Tests: Active Orders 24 hr Category Date Time Status LUMBAR SPINE W/O [CT] Stat Exams 08/05/18 14:30 Completed - Progress Progress: unchanged Progress Note: 08/05/18 17:20 Pt was evaluated and CT was ordered. Pt has spinal stenosis and foraminal stenosis of L4-5 Discussed with : Emertia Allison Will see patient in: office (F/U with PCP and Neurology/Neurosurg) - Departure Time of Disposition: 17:19 Departure Disposition: Home Clinical Impression: Spinal stenosis at L4-L5 level Condition: Stable Critical Care Time: No Referrals: HARRIS ALLISON [Primary Care Provider] - Additional Instructions: F/U with PCP to evaluate and decide on imaging (MRI), with referral to neurosurg or neurology.
[2018-08-05 17:40] VITALS: BP 130/72
== END 2018-08-05 17:30 | disposition home or self-care (01) ==
LOC: ED 13:42
DX: M48.061 Spinal stenosis, lumbar region without neurogenic claudication (principal)
CPT/HCPCS: 72131; 99284

== ENCOUNTER 2019-04-09 19:50 | Emergency (ER) | payer MEDICARE, OTHER ==
--- NOTE | 2019-04-09 20:00 | ERPHSYRPT ---
- History of Present Illness Time Seen by Provider: 04/09/19 20:00 Source: patient, family Exam Limitations: no limitations Physician History: 78 y/o white male presents with right ankle and foot pain and swelling after a fall earlier today. pt states he was walking down an decline and go ahead of himself. no other injuries or complaints. hurts to bear weight but he can. Method of Injury: fell Occurred: this evening Quality: aching Severity of Pain-Max: mild Severity of Pain-Current: mild Lower Extremities Pain: foot: right, ankle: right Modifying Factors: Improves With: movement Associated Symptoms: other (hurts to bear weight) Allergies/Adverse Reactions: No Known Drug Allergies Allergy (Verified 10/11/17 12:19) Home Medications: Clopidogrel Bisulfate 75 mg [PLAVIX 75 MG Tablet] 75 mg PO DAILY 05/30/13 [History] Ezetimibe 10 mg [Zetia 10 MG] 10 mg PO DAILY 05/30/13 [History] Fenofibrate,Micronized 145 mg* [Tricor 145 MG] 145 mg PO HS 05/30/13 [History ] Fluoxetine HCl 20 mg [Prozac 20 MG] 20 mg PO DAILY 05/30/13 [History] Glycopyrrolate [Robinul] 2 mg PO HS 05/30/13 [History] Loratadine 10 mg [Claritin 10 mg] 10 mg PO HS 05/30/13 [History] Pravastatin Sodium [Pravachol] 40 mg PO HS 05/30/13 [History] Tamsulosin HCl 0.4 mg [Flomax 0.4 MG] 0.4 mg PO HS 05/30/13 [History] Aspirin [Aspirin EC] 81 mg PO DAILY 10/29/13 [History] Atenolol [Tenormin] 25 mg PO DAILY 10/29/13 [History] Ferrous Sulfate [Iron] 325 mg PO DAILY 10/29/13 [History] Insulin Glargine [Lantus Insulin] 30 unit SQ HS 10/29/13 [History] Omeprazole 20 MG [Prilosec 20 mg] 20 mg PO DAILY 10/29/13 [History] Torsemide [Demadex] 40 mg PO DAILY 10/29/13 [History] Vitamin B Complex 1 each PO DAILY 10/29/13 [History] Ascorbic Acid 500 mg [Vitamin C 500 MG] 1,000 mg PO DAILY 11/13/16 [ History] Niacin (Inositol Niacinate) [Niacin 500 mg Capsule] 1,000 mg PO DAILY 11/13/16 [ History] Paricalcitol 2.5 mcg PO DAILY 11/13/16 [History] Pyridoxine HCl (Vitamin B6) [Vitamin B-6] 200 mg PO BID 11/13/16 [History] Ropinirole 2Mg [Requip 2Mg Tab] 4 mg PO HS 11/13/16 [History] Ubidecarenone [Co Q-10] 200 mg PO DAILY 11/13/16 [History] Nitroglycerin 0.4 mg (Ed) [Nitrostat 0.4 MG (ED)] 1 tab SL Q5MIN PRN MR X 3 PRN 06/15/17 [History] Hx Tetanus, Diphtheria Vaccination/Date Given: No Hx Influenza Vaccination/Date Given: No Hx Pneumococcal Vaccination/Date Given: No - Review of Systems Constitutional: No Symptoms Eyes: No Symptoms Ears, Nose, & Throat: No Symptoms Respiratory: No Symptoms Cardiac: No Symptoms Abdominal/Gastrointestinal: No Symptoms Genitourinary Symptoms: No Symptoms Musculoskeletal: Fall, Injury (right foot and ankle) Neurological: No Symptoms Psychological: No Symptoms Endocrine: No Symptoms Hematologic/Lymphatic: No Symptoms Immunological/Allergic: No Symptoms All Other Systems: Reviewed and Negative - Past Medical History Pertinent Past Medical History: Yes Neurological History: Peripheral Neuropathy ENT History: No Pertinent History Cardiac History: Angina, Coronary Artery Disease, High Cholesterol, Other Respiratory History: CHF, COPD, Sleep Apnea Endocrine Medical History: Diabetes Type II Musculoskeletal History: Arthritis GI Medical History: No Pertinent History History: Dialysis, Renal Disease Psycho-Social History: Depression Male Reproductive Disorders: Prostate Problems Other Medical History: hypotension, TURP - Past Surgical History Past Surgical History: Yes Neuro Surgical History: No Pertinent History Cardiac: Cardiac Catheterization, Cardiac Stent Respiratory: No Pertinent History Gastrointestinal: Appendectomy Genitourinary: No Pertinent History Musculoskeletal: No Pertinent History Male Surgical History: Prostate Surgery Other Surgical History: fistula to left arm - Social History Smoking Status: Former smoker Exposure to second hand smoke: No Drug Use: none Patient Lives Alone: Yes - Nursing Vital Signs Nursing Vital Signs: Initial Vital Signs Temperature 97.4 F 04/09/19 20:00 Pulse Rate 77 04/09/19 20:00 Blood Pressure 143/65 04/09/19 20:00 O2 Sat by Pulse Oximetry 96 04/09/19 20:00 Pain Scale Pain Intensity 5 - Physical Exam General Appearance: no apparent distress, alert, anxiety Eyes, Ears, Nose, Throat Exam: normal ENT inspection, moist mucous membranes Neck Exam: normal inspection, non-tender, supple, full range of motion Cardiovascular/Respiratory Exam: chest non-tender, no respiratory distress Gastrointestinal/Abdominal Exam: non-tender Back Exam: normal inspection, normal range of motion, No CVA tenderness, No vertebral tenderness Hips Exam: bilateral: non-tender, normal inspection, normal range of motion, no evidence of injury Legs Exam: bilateral leg: non-tender, normal inspection, normal range of motion , no evidence of injury Knees Exam: bilateral knee: non-tender, normal inspection, normal range of motion, no evidence of injury Ankle Exam: right ankle: soft tissue tenderness, swelling, left ankle: non- tender, normal inspection, normal range of motion, no evidence of injury Foot Exam: right foot: soft tissue tenderness, swelling, left foot: non-tender, normal inspection, normal range of motion, no evidence of injury Neuro/Tendon Exam: normal sensation, normal motor functions, normal tendon functions, no evidence tendon injury Mental Status Exam: alert, oriented x 3, cooperative Skin Exam: normal color, warm, dry SpO2 Interpretation: normal O2 Delivery: Room Air Procedures - Splinting Location of Splint: Right, Ankle Type of Splint: Orthoglass Short Leg Splint Splint Applied By: ED Nurse Pre-Proc Neuro Vasc Exam: normal Post-Proc Neuro Vasc Exam: neurovascular intact - Course Nursing assessment & vital signs reviewed: Yes Ordered Tests: Active Orders 24 hr Category Date Time Status Splint STAT Care 04/09/19 22:06 Active ANKLE (3 VIEWS) Stat Exams 04/09/19 20:32 Ordered FOOT (MINIMUM 3 VIEWS) Stat Exams 04/09/19 20:32 Ordered - Progress Progress: improved Progress Note: 04/09/19 22:03 right foot and ankle xray-nondisplaced distal fibular fx. 04/09/19 22:25 pt has walker at home. will transport via wheelchair to car and at home pt to use walker. Counseled pt/family regarding: diagnosis, need for follow-up, rad results - Departure Departure Disposition: Home Clinical Impression: Right fibular fracture Condition: Stable Critical Care Time: No Referrals: HARRIS ALLISON [Primary Care Provider] - ORTHO - [employer] [NON-STAFF PHY W/O PRIVILEGES] - [facility]-Ortho M-F [id number] Additional Instructions: follow up at [facility] tomorrow, 04/10/19, 8 am morning for further management. light weight bearing only.
[2019-04-09 21:15] VITALS: PULSE 69; O2SAT 97
[2019-04-09 22:06] VITALS: BP 149/61
--- NOTE | 2019-04-10 08:47 | XRAY ---
Indication: Pain following fall. Comparison: None 3 views of the right ankle demonstrates nondisplaced distal fibula/lateral malleolus fracture with soft tissue swelling. Query tiny nondisplaced posterior malleolus cortical fracture and nondisplaced medial malleolus fracture. Elsewhere osteopenia, small heel spurs, and scattered vascular calcifications.
--- NOTE | 2019-04-10 08:51 | XRAY ---
Indication: Pain following fall. Comparison: None 3 nonweightbearing views of the right foot demonstrates osteopenia, old 2nd/3rd metatarsal fractures, small heel spurs, cuboid accessory ossicle, 5th toe/5th MTP soft tissue swelling, and scattered vascular calcifications. Ankle reported separately.
== END 2019-04-09 22:35 | disposition home or self-care (01) ==
LOC: ED 19:50
DX: S82.401A Unspecified fracture of shaft of right fibula, initial encounter for closed fracture (principal); W19.XXXA Unspecified fall, initial encounter; M25.571 Pain in right ankle and joints of right foot; I25.10 Atherosclerotic heart disease of native coronary artery without angina pectoris; E78.00 Pure hypercholesterolemia, unspecified; G62.9 Polyneuropathy, unspecified; Z79.899 Other long term (current) drug therapy; I50.9 Heart failure, unspecified; G47.30 Sleep apnea, unspecified; E11.9 Type 2 diabetes mellitus without complications; M19.90 Unspecified osteoarthritis, unspecified site; N28.9 Disorder of kidney and ureter, unspecified; Z99.2 Dependence on renal dialysis; F32.9 Major depressive disorder, single episode, unspecified
CPT/HCPCS: 29515; 73610; 73630; 99283

== ENCOUNTER 2020-09-22 09:24 | Day surgery (SDC) | payer MEDICARE, OTHER ==
--- NOTE | 2020-09-22 08:02 | HP ---
DATE OF SURGERY: 09/22/2020 HISTORY OF PRESENT ILLNESS: The patient presents with complaints of hemorrhoids. He reports there is no control of the bowels. He states that he bleeds at times. He was noted to have some urinary retention and dehydration on a recent hospital stay. He states that he cannot tell when he is pooping or peeing. He was recently put on an antibiotic for a bladder infection. He has a decubitus ulcer and he sees wound care for this. The patient is due for a colonoscopy. PAST MEDICAL HISTORY: Chronic obstructive pulmonary disease. Hypotension. Diabetes. Renal disease. Anemia. Depression. PAST SURGICAL HISTORY: Five heart stents. Peritoneal dialysis. Appendectomy. Tonsils and adenoids. Spinal surgery. Transurethral resection of prostate. ALLERGIES: NKDA. MEDICATIONS: Plavix. Darling. Bumex. Prozac. Niacin. Toprol. Aspirin. Flomax. Lantus. Atorvastatin. Multivitamin. FAMILY HISTORY: Hypotension. Heart disease. Diabetes. SOCIAL HISTORY: Negative. REVIEW OF SYSTEMS: CONSTITUTIONAL: Denies fever or chills. CHEST: Denies shortness of breath. CVS: Denies chest pain. ABDOMEN: Denies abdominal pain, nausea, vomiting, diarrhea, constipation. Reports occasional rectal bleeding. INTEGUMENTARY: Negative. PHYSICAL EXAMINATION: GENERAL: No acute distress. CHEST: Nonlabored. No shortness of breath. CVS: Regular rate and rhythm. ABDOMEN: Soft, nontender to palpation. RECTAL: Internal and external hemorrhoids. EXTREMITIES: No edema. INTEGUMENTARY: Warm, pink, no rash. NEUROLOGIC: Alert. PSYCHIATRIC: Appropriate. IMPRESSION: Change in bowel habits, rectal bleeding and symptomatic hemorrhoids. PLAN: Colonoscopy with Dr. Sravan Mckeon. As dictated by Lindsey Cash NP.
[2020-09-22] MEDS ORDERED: Lactated Ringers 1,000 ML IV ONE (10:08)
[2020-09-22] MEDS ORDERED: Lactated Ringers 1,000 ML IV SCH (10:30)
[2020-09-22] MEDS ORDERED: DIPRIVAN 200 MG/20 ML IV ONE ×2 (12:27→12:48)
--- NOTE | 2020-09-22 14:01 | OP ---
SURGERY DATE/TIME: 09/22/2020 1227 PREOPERATIVE DIAGNOSIS: Five year follow up polyps. The patient has had some rectal bleeding. POSTOPERATIVE DIAGNOSES: 1) Five year follow up polyps. The patient has had some rectal bleeding. 2) Additional findings - the patient has a component of anal-rectum prolapse. He also has severe diverticulosis. PROCEDURES: 1) Colonoscopy complete to cecum. 2) Hot polypectomy x3 in two jars mid ascending and rectal. SURGEON: Sravan Mckeon M.D. ANESTHESIA: MAC/General. COMPLICATIONS: None. CONDITION: Stable. INDICATION: A patient with five year follow up. He has had a little rectal bleeding. He has had multiple medical problems. He is in renal failure and has a CBD catheter. DESCRIPTION OF PROCEDURE: He is taken to endoscopy. Left lateral decubitus position. There is significant anal-rectal prolapse about 2 inches on the, I believe, the left side. There are no mechanical lesions otherwise. The rectum is satisfactory. There is a little hemorrhoidal disease. The sigmoid is packed with diverticula for 60 cm. The descending-sigmoid junction satisfactory. Advancing up the descending, splenic, transverse, ascending, cecum, ileocecal valve normal. Base of the cecum normal. Appendiceal orifice not absolutely seen but cul-de-sac was well seen, this area was normal. Coming back up 4 inches in the mid ascending there were two polyps a 5 mm and a 1 cm taken to extinction with hot biopsy forceps and submitted in one jar. Hepatic, transverse, splenic, descending, sigmoid, rectum 8 mm polyp taken to extinction. Scope withdrawn. The patient tolerated the procedure satisfactorily. Follow up five years if able.
[2020-09-22 14:43] VITALS: BP 118/53; PULSE 64; O2SAT 98
== END 2020-09-22 14:05 | disposition home or self-care (01) ==
LOC: SDC 09:24
PROVIDERS: ATTEND Surgery
DX: R19.4 Change in bowel habit (principal); K62.5 Hemorrhage of anus and rectum; Z09 Encounter for follow-up examination after completed treatment for conditions other than malignant neoplasm; Z86.010 Personal history of colon polyps; K57.30 Diverticulosis of large intestine without perforation or abscess without bleeding; D12.2 Benign neoplasm of ascending colon; D12.8 Benign neoplasm of rectum; K62.2 Anal prolapse; E11.9 Type 2 diabetes mellitus without complications; J44.9 Chronic obstructive pulmonary disease, unspecified; Z79.899 Other long term (current) drug therapy; Z79.01 Long term (current) use of anticoagulants
CPT/HCPCS: 82947; 99100; J2704

== ENCOUNTER 2020-10-13 19:26 | Emergency (ER) | payer MEDICARE, OTHER ==
--- NOTE | 2020-10-13 19:41 | ERPHSYRPT ---
- History of Present Illness Time Seen by Provider: 10/13/20 19:40 Source: patient Exam Limitations: no limitations Physician History: This is a 79-year-old white male with a history of insulin-dependent diabetes, peripheral neuropathy, coronary artery disease with cardiac stents, congestive heart failure, COPD and renal disease requiring peritoneal dialysis and presents with head and neck injury after a fall. Patient did not pass out or have a syncopal episode. Patient has poor balance because of his peripheral neuropathy and he fell forward landing on his knees and hitting his head and causing some neck pain as well. He denies chest pain. He denies shortness of breath. He has not had a fever. He does not have a cough. He has no nausea vomiting or diarrhea. He has no flulike symptoms. Occurred: just prior to arrival Reason for Fall: unknown Injuries/Pain Location: head, neck Loss of Consciousness: no loss of consciousness Severity of Pain-Max: mild Severity of Pain-Current: none Modifying Factors: Improves With: nothing Associated Symptoms (Fall): No seizures, No vomiting Allergies/Adverse Reactions: No Known Drug Allergies Allergy (Verified 10/13/20 19:59) Home Medications: Fluoxetine HCl 20 mg [Prozac 20 MG] 20 mg PO DAILY 05/30/13 [History] Tamsulosin HCl 0.4 mg [Flomax 0.4 MG] 0.4 mg PO HS 05/30/13 [History] Insulin Glargine [Lantus Insulin] 30 unit SQ HS 10/29/13 [History] Niacin (Inositol Niacinate) [Niacin 500 mg Capsule] 500 mg PO DAILY 11/13/16 [History] Ropinirole 2Mg [Requip 2Mg Tab] 2 mg PO HS 11/13/16 [History] Ubidecarenone [Co Q-10] 200 mg PO DAILY 11/13/16 [History] paricalcitoL [Paricalcitol] 2.5 mcg PO DAILY 11/13/16 [History] Nitroglycerin 0.4 mg (Ed) [Nitrostat 0.4 MG (ED)] 1 tab SL Q5MIN PRN MR X 3 PRN 06/15/17 [History] Atorvastatin Calcium [Lipitor] 80 mg PO HS 09/16/20 [History] Bumetanide [Bumex] 2 mg PO DAILY 09/16/20 [History] Fexofenadine HCl [Darling] 180 mg PO DAILY 09/16/20 [History] Fluoxetine HCl [Prozac] 40 mg PO QHS 09/16/20 [History] Vitamin E (Dl,Tocopheryl Acet) [Vitamin E] 50,000 unit PO WEEKLY 09/16/20 [History] Hx Tetanus, Diphtheria Vaccination/Date Given: No Hx Influenza Vaccination/Date Given: No Hx Pneumococcal Vaccination/Date Given: No Travel Risk - International Travel Have you traveled outside of the country in past 3 weeks: No - Coronavirus Screening Are you exhibiting any of the following symptoms?: No Close contact with a COVID-19 positive Pt in past 14-21 Days: No - Vaccine Status Have you recieved a Covid-19 vaccination: No - Review of Systems Constitutional: No Symptoms Eyes: No Symptoms Ears, Nose, & Throat: No Symptoms Respiratory: No Symptoms Cardiac: No Symptoms Abdominal/Gastrointestinal: No Symptoms Genitourinary Symptoms: No Symptoms Musculoskeletal: Fall Skin: No Symptoms Neurological: No Symptoms Psychological: No Symptoms Endocrine: No Symptoms Hematologic/Lymphatic: No Symptoms Immunological/Allergic: No Symptoms All Other Systems: Reviewed and Negative - Past Medical History Pertinent Past Medical History: Yes Neurological History: Peripheral Neuropathy ENT History: No Pertinent History Cardiac History: Angina, Coronary Artery Disease, High Cholesterol, Other Respiratory History: CHF, COPD, Sleep Apnea Endocrine Medical History: Diabetes Type II Musculoskeletal History: Arthritis GI Medical History: No Pertinent History History: Dialysis, Renal Disease Psycho-Social History: Depression Male Reproductive Disorders: Prostate Problems Other Medical History: TURP - Past Surgical History Past Surgical History: Yes Neuro Surgical History: No Pertinent History Cardiac: Cardiac Catheterization, Cardiac Stent Respiratory: No Pertinent History Gastrointestinal: Appendectomy Genitourinary: No Pertinent History Musculoskeletal: Other Male Surgical History: Prostate Surgery Other Surgical History: fistula to left arm. spinal surgery - Social History Smoking Status: Former smoker Exposure to second hand smoke: No Drug Use: none Patient Lives Alone: Yes - Nursing Vital Signs Nursing Vital Signs: Initial Vital Signs Temperature 97.5 F 10/13/20 19:39 Pulse Rate 79 10/13/20 19:39 Respiratory Rate 18 10/13/20 19:39 Blood Pressure 158/81 10/13/20 19:39 O2 Sat by Pulse Oximetry 98 10/13/20 19:39 Pain Scale Pain Intensity 8 - Michael Coma Score Best Eye Response ([place]): (4) open spontaneously Best Verbal Response ([place]): (5) oriented Best Motor Response (Michael): (6) obeys commands Michael Total: 15 - Physical Exam General Appearance: no apparent distress, alert, anxiety Head Injury: tenderness (Mid forehead) Eye Exam: PERRL/EOMI, eyes nml inspection ENT Exam: airway nml, nml ext.inspection, No evidence of ENT injury Neck Exam: supple, trachea midline, full range of motion, normal alignment, normal inspection, c-collar in place (Patient drove himself to the emergency department. We placed a c-collar when patient came into his emergency room bed) Respiratory/Chest Exam: No chest tenderness, No respiratory distress Cardiovascular Exam: normal heart sounds, regular rate/rhythm Gastrointestinal Exam: soft, normal bowel sounds, No tenderness Extremity Exam: normal inspection, normal range of motion, capillary refill <3 sec, pelvis stable Neurologic Exam: alert, oriented x 3, cooperative, 2nd pressman II-XII nml as tested, normal mood/affect Skin Exam: normal color, warm, dry SpO2 Interpretation: normal O2 Delivery: Room Air - Course Nursing assessment & vital signs reviewed: Yes EKG Interpreted by Me: RATE (74), Sinus Rhythm, NORMAL AXIS, NORMAL INTERVALS, NORMAL QRS, NORMAL ST-T, Other (No acute ischemic changes. No changes when compared to EKG dated 09/19/2020.) Ordered Tests: Active Orders 24 hr Category Date Time Status School Speech Therapist STAT Care 10/13/20 20:22 Active EKG-ER Only STAT Care 10/13/20 20:21 Active IV Insertion STAT Care 10/13/20 20:21 Active Pulse Oximetry (ED) STAT Care 10/13/20 20:21 Active CERVICAL SPINE WO CONTRAST [CT] Stat Exams 10/13/20 20:22 Taken HEAD WITHOUT CONTRAST [CT] Stat Exams 10/13/20 20:22 Taken CBC W DIFF Stat Lab 10/13/20 19:45 Completed CMP Stat Lab 10/13/20 19:45 Completed Manual Differential NC Stat Lab 10/13/20 19:45 Completed Medication Summary Generic Name Dose Route Start Last Admin Trade Name Freq PRN Reason Stop Dose Admin Sodium Chloride 1,000 mls @ 50 mls/hr 10/13/20 20:30 10/13/20 20:34 Sodium Chloride 0.9% 1000 Ml IV 11/12/20 20:29 50 mls/hr .Q20H SUZIE Administration Lab/Rad Data: Laboratory Result Diagrams 10/13/20 19:45 10/13/20 19:45 Laboratory Results 10/13/20 10/13/20 Range/Units 19:45 19:45 WBC 6.2 (4.0-10.5) K/mm3 RBC 3.03 L (4.1-5.6) M/mm3 Hgb 9.8 L (12.5-18.0) gm/dl Hct 31.8 L (42-50) % MCV 105.0 H (78-100) fl MCH 32.3 H (26-32) pg MCHC 30.8 L (32-36) g/dl RDW 13.7 (11.5-14.0) % Plt Count 167 (150-450) K/mm3 MPV 9.1 (7.5-11.0) fl Sodium 136 L (137-145) mmol/L Potassium 4.5 (3.5-5.1) mmol/L Chloride 101 (98-107) mmol/L Carbon Dioxide 30 (22-30) mmol/L Anion Gap 9.4 (5-15) MEQ/L BUN 36 H (9-20) mg/dL Creatinine 2.25 H (0.66-1.25) mg/dL Estimated GFR 30.1 ML/MIN Glucose 148 H (74-106) mg/dL Calcium 10.0 (8.4-10.2) mg/dL Total Bilirubin 0.60 (0.2-1.3) mg/dL AST 28 (17-59) U/L ALT 16 (0-50) U/L Alkaline Phosphatase 94 (38-126) U/L Serum Total Protein 6.2 L (6.3-8.2) g/dL Albumin 3.6 (3.5-5.0) g/dL - Progress Progress: improved, re-examined Progress Note: 10/13/20 22:13 CAT scan of the cervical spine shows multilevel degenerative disc disease but no acute fracture or subluxation. CAT scan of the head without contrast shows no acute intracranial abnormality. Counseled pt/family regarding: lab results, diagnosis, need for follow-up, rad results - Departure Departure Disposition: Home Clinical Impression: Fall with no injury, Forehead contusion, Chronic renal insufficiency, Chronic disease anemia Condition: Stable Critical Care Time: No Referrals: HARRIS ALLISON [Primary Care Provider] - Additional Instructions: Ice pack to tender areas. May use Tylenol for pain control. Follow-up with your primary care physician on an as-needed basis.
[2020-10-13] MEDS ORDERED: Sodium Chloride 0.9% 1000 ML 1,000 ML IV SCH (20:30)
[2020-10-13 20:32] LABS: Hematocrit 31.8 % (42-50); Hemoglobin 9.8 gm/dl (12.5-18.0); Mean Corpuscular Hemoglobin 32.3 pg (26-32); Mean Corpuscular Hgb Concent. 30.8 g/dl (32-36); Mean Platelet Volume 9.1 fl (7.5-11.0); Platelet Count 167 K/mm3 (150-450); Red Blood Count 3.03 M/mm3 (4.1-5.6); Red Cell Distribution Width 13.7 % (11.5-14.0); White Blood Count 6.2 K/mm3 (4.0-10.5)
[2020-10-13] MEDS ORDERED: Sodium Chloride 0.9% 1000 ML 1,000 ML ONE (20:33)
[2020-10-13 20:41] LABS: ALBUMIN 3.6 g/dL (3.5-5.0); ANION GAP 9.4 MEQ/L (5-15); BILIRUBIN,TOTAL 0.6 mg/dL (0.2-1.3); Creatinine 1 2.25 mg/dL (0.66-1.25); EST GLOMERULAR FILTRATION RATE 30.1 ML/MIN; Potassium 4.5 mmol/L (3.5-5.1); Total Protein 6.2 g/dL (6.3-8.2)
[2020-10-13] MEDS ORDERED: Zofran 4 MG/2 ML VIAL IV ONE (22:24)
[2020-10-13] MEDS ORDERED: MORPHINE SULFATE 2 MG INJ IV ONE (22:24)
[2020-10-13] MEDS ORDERED: MORPHINE SULFATE 2 MG INJ ONE (22:25)
[2020-10-13] MEDS ORDERED: Zofran 4 MG/2 ML VIAL ONE (22:25)
[2020-10-13 22:51] LABS: Eosinophil 1 % (0.00-3.0); Lymphocytes 12 % (24-44); Monocyte 4 % (0.0-12.0); Neutrophils 83 % (36.-66.); Total Cells Counted 100
[2020-10-13 22:52] LABS: ANISOCYTOSIS 1+; Platelet Estimate NORMAL (NORMAL)
[2020-10-13] MEDS ORDERED: HYDROCODONE-ACETAMIN 10-325 MG PO PRN (23:02)
[2020-10-14] MEDS ORDERED: NORCO 5/325 MG PO ONE (02:50)
[2020-10-14] MEDS ORDERED: NORCO 5/325 MG ONE (02:53)
[2020-10-14 03:37] VITALS: BP 158/74; PULSE 68; O2SAT 98
--- NOTE | 2020-10-14 08:50 | XRAY ---
Indication: Pain following fall. Multiple contiguous axial images obtained through the head without contrast. Comparison: February 10, 2018. There remains age-appropriate global atrophy and minimal periventricular degenerative micro-ischemia bilaterally. No acute intracranial hemorrhage, abnormal extra-axial fluid collection, or mass effect. Fourth ventricle is midline without hydrocephalus. Bony calvarium intact.. Visualized paranasal sinuses and mastoid air cells are clear. Impression: Continued nonacute senile brain.
--- NOTE | 2020-10-14 08:52 | XRAY ---
Indication: Pain following fall. Multiple contiguous axial images obtained through the cervical spine. Sagittal and coronal reformatted images obtained. Comparison: February 10, 2018. Osseous structures remain demineralized. Axial images remain negative for acute fracture, suspicious bony lesions, or spinal canal stenosis. There remains minimal/mild C4-C7 degenerative endplate spurring, mild multilevel bilateral degenerative facet hypertrophy, and C7-T1 degenerative vacuum disc phenomena. Sagittal and coronal reformatted images demonstrates lordotic stranding, positional versus paraspinal spasm. There remains C4-T1 disc space narrowing. No acute compression fracture, subluxation, or jumped facet. Normal appearing craniocervical junction. Visualized noncontrasted soft tissues again demonstrates mild bilateral carotid calcifications. Lung apices are clear. Impression: 1. Cervical lordotic straightening, positional versus paraspinal spasm. 2. Stable osteopenia and multilevel degenerative changes. 3. Continue negative acute fracture/subluxation.
== END 2020-10-14 03:12 | disposition home or self-care (01) ==
LOC: ED 19:26
DX: W18.30XA Fall on same level, unspecified, initial encounter (principal); N28.9 Disorder of kidney and ureter, unspecified; N18.9 Chronic kidney disease, unspecified; D63.8 Anemia in other chronic diseases classified elsewhere; G62.9 Polyneuropathy, unspecified; I50.9 Heart failure, unspecified; M54.2 Cervicalgia; Z79.899 Other long term (current) drug therapy; E11.9 Type 2 diabetes mellitus without complications; I25.10 Atherosclerotic heart disease of native coronary artery without angina pectoris; G47.30 Sleep apnea, unspecified
CPT/HCPCS: 11042; 36000; 36415; 70450; 72125; 80053; 85025; 93005; 93041; 94760; 96374; 96375; 99284; J2270; J2405; A9270-GY

== ENCOUNTER 2021-04-03 20:55 | Emergency (ER) | payer MEDICARE, OTHER ==
[2021-04-03] MEDS ORDERED: SUBLIMAZE 100 MCG/2 ML IV ONE (21:23)
[2021-04-03] MEDS ORDERED: Zofran 4 MG/2 ML VIAL ONE (21:24)
[2021-04-03] MEDS ORDERED: SUBLIMAZE 100 MCG/2 ML ONE (21:24)
[2021-04-03] MEDS ORDERED: Zofran 4 MG/2 ML VIAL IV ONE (21:24)
[2021-04-03 22:05] VITALS: PULSE 92
--- NOTE | 2021-04-03 22:14 | ERPHSYRPT ---
- History of Present Illness Source: patient Exam Limitations: no limitations Patient Subjective Stated Complaint: fell coming down steps, ankle rolled Triage Nursing Assessment: pt was at his friends house visiting, was going down his front steps to leave and when he stepped off the last step his ankle rolled and he fell to the ground. Pt has swelling to lateral ankle bone with what appears to be bone deformity. Pedal pulse present to rt foot. Pt was outward rotation to rt ankle. Pt denies any rt knee or rt hip pain. Pt unable to put any weight on his rt foot. Physician History: 80 yo wm slipped at the bottom of stairs and twisted his R ankle. Pt states that he has a h/o a sprain in the past. He denies head injury/LIANG/C,T,L-spine pain/Hip pain. R ankle has obvious deformity. Method of Injury: fell Occurred: just prior to arrival Quality: aching Severity of Pain-Max: moderate Severity of Pain-Current: moderate Lower Extremities Pain: ankle: right Modifying Factors: Improves With: movement Associated Symptoms: unable to bear weight Allergies/Adverse Reactions: adhesive tape Adverse Reaction (Intermediate, Verified 04/03/21 21:08) Blisters Home Medications: Fluoxetine HCl 20 mg [Prozac 20 MG] 20 mg PO HS 05/30/13 [History] Tamsulosin HCl 0.4 mg [Flomax 0.4 MG] 0.4 mg PO HS 05/30/13 [History] Insulin Glargine [Lantus Insulin] 30 unit SQ BID 10/29/13 [History] Niacin (Inositol Niacinate) [Niacin 500 mg Capsule] 500 mg PO HS 11/13/16 [History] Ropinirole 2Mg [Requip 2Mg Tab] 2 mg PO HS 11/13/16 [History] Ubidecarenone [Co Q-10] 200 mg PO DAILY 11/13/16 [History] paricalcitoL [Paricalcitol] 2.5 mcg PO DAILY 11/13/16 [History] Nitroglycerin 0.4 mg (Ed) [Nitrostat 0.4 MG (ED)] 1 tab SL Q5MIN PRN MR X 3 PRN 06/15/17 [History] Atorvastatin Calcium [Lipitor] 80 mg PO HS 09/16/20 [History] Fexofenadine HCl [Darling] 180 mg PO DAILY 09/16/20 [History] Fluoxetine HCl [Prozac] 40 mg PO DAILY 09/16/20 [History] Vitamin E (Dl,Tocopheryl Acet) [Vitamin E] 50,000 unit PO WEEKLY 09/16/20 [History] Aspirin [Aspirin EC] 81 mg PO HS 04/03/21 [History] Hx Tetanus, Diphtheria Vaccination/Date Given: Yes Hx Influenza Vaccination/Date Given: Yes Hx Pneumococcal Vaccination/Date Given: Yes Immunizations Up to Date: Yes Travel Risk - International Travel Have you traveled outside of the country in past 3 weeks: No - Coronavirus Screening Are you exhibiting any of the following symptoms?: No Close contact with a COVID-19 positive Pt in past 14-21 Days: No - Vaccine Status Have you recieved a Covid-19 vaccination: Yes Class 1 Owner Operator: Moderna - Vaccination Dates Date of 2cond Vaccination (if applicable): 08/2020 - Review of Systems Constitutional: No Symptoms Eyes: No Symptoms Ears, Nose, & Throat: No Symptoms Respiratory: No Symptoms Cardiac: No Symptoms Abdominal/Gastrointestinal: No Symptoms Genitourinary Symptoms: No Symptoms Skin: No Symptoms Neurological: No Symptoms Psychological: No Symptoms Endocrine: No Symptoms Hematologic/Lymphatic: No Symptoms Immunological/Allergic: No Symptoms - Past Medical History Pertinent Past Medical History: Yes Neurological History: Peripheral Neuropathy ENT History: No Pertinent History Cardiac History: Angina, Coronary Artery Disease, High Cholesterol, Other Respiratory History: CHF, COPD, Sleep Apnea Endocrine Medical History: Diabetes Type II Musculoskeletal History: Arthritis GI Medical History: No Pertinent History History: Dialysis, Renal Disease Psycho-Social History: Depression Male Reproductive Disorders: Prostate Problems Other Medical History: TURP - Past Surgical History Past Surgical History: Yes Neuro Surgical History: No Pertinent History Cardiac: Cardiac Catheterization, Cardiac Stent Respiratory: No Pertinent History Gastrointestinal: Appendectomy Genitourinary: Other Musculoskeletal: Other Male Surgical History: Prostate Surgery Other Surgical History: fistula to left arm. spinal surgery. TURP - Social History Smoking Status: Former smoker Exposure to second hand smoke: No Drug Use: none Patient Lives Alone: Yes Significant Family History: no pertinent family hx - Nursing Vital Signs Nursing Vital Signs: Initial Vital Signs Temperature 97.7 F 04/03/21 20:56 Pulse Rate 93 H 04/03/21 20:56 Respiratory Rate 24 04/03/21 20:56 Blood Pressure 143/75 04/03/21 20:56 O2 Sat by Pulse Oximetry 95 04/03/21 20:56 Pain Scale Pain Intensity 3 Hypertensive - Physical Exam General Appearance: no apparent distress Eyes, Ears, Nose, Throat Exam: normal ENT inspection Neck Exam: normal inspection, non-tender (C-spine nttp) Cardiovascular/Respiratory Exam: chest non-tender, regular rate/rhythm (3/6 HIEU), rales (B bases), No rib tenderness Gastrointestinal/Abdominal Exam: non-tender, soft Back Exam: normal inspection (No T/L-spine ttp) Hips Exam: bilateral: non-tender, normal inspection, normal range of motion, no evidence of injury Legs Exam: bilateral leg: non-tender, normal inspection, normal range of motion, no evidence of injury Knees Exam: bilateral knee: non-tender, normal inspection, normal range of motion, no evidence of injury Ankle Exam: right ankle: deformity (Obvious deformity/edema/good pedal pulse, distal sensation, and capillary return) Foot Exam: bilateral foot: non-tender, normal inspection, normal range of motion, no evidence of injury Neuro/Tendon Exam: normal sensation, normal motor functions, normal tendon funct ions, responds to pain Mental Status Exam: alert, oriented x 3, cooperative Skin Exam: normal color, warm, dry SpO2 Interpretation: borderline oxygenation SpO2: 93 O2 Delivery: Room Air Procedures - Splinting Location of Splint: Right, Lower Leg Type of Splint: Orthoglass Short Leg Splint Splint Applied By: ED Physician Pre-Proc Neuro Vasc Exam: normal Post-Proc Neuro Vasc Exam: neurovascular intact, good alignment - Course Nursing assessment & vital signs reviewed: Yes - Radiology Exams Ankle X-ray Interpretation: Interpreted by me (R Bimalleolar Fx/Mild dislocation/splint-post redusction) Ordered Tests: Active Orders 24 hr Category Date Time Status ANKLE (3 VIEWS) Stat Exams 04/03/21 21:24 Taken ANKLE (3 VIEWS) Stat Exams 04/03/21 22:17 Taken Medication Summary Discontinued Medications Generic Name Dose Route Start Last Admin Trade Name Freq PRN Reason Stop Dose Admin Fentanyl Citrate 25 mcg 04/03/21 21:23 04/03/21 21:26 Sublimaze 100 Mcg/2 Ml IV 04/03/21 21:24 25 mcg STAT ONE Administration Fentanyl Citrate Confirm 04/03/21 21:24 Sublimaze 100 Mcg/2 Ml Administered 04/03/21 21:25 Dose 100 mcg .ROUTE .STK-MED ONE Ondansetron HCl 4 mg 04/03/21 21:24 04/03/21 21:26 Zofran 4 Mg/2 Ml Vial IV 04/03/21 21:25 4 mg STAT ONE Administration Ondansetron HCl Confirm 04/03/21 21:24 Zofran 4 Mg/2 Ml Vial Administered 04/03/21 21:25 Dose 4 mg .ROUTE .STK-MED ONE - Progress Progress: improved Progress Note: 04/03/21 22:20 25umg IV Fentanyl/4mg IV Zofran 04/03/21 22:[address] Duong at [facility] pt to go to ER Report called to Dr. Kennedy Pain 08/03 after splinting Counseled pt/family regarding: diagnosis, rad results - Departure Departure Disposition: Transfer Clinical Impression: Bimalleolar fracture of right ankle Condition: Stable Critical Care Time: No Referrals: HARRIS ALLISON [Primary Care Provider] - Instructions: Ankle Fracture (DC)
[2021-04-03 23:20] VITALS: BP 119/66
[2021-04-04 00:17] VITALS: O2SAT 93
--- NOTE | 2021-04-04 08:38 | XRAY ---
Indication: Pain following fall. Comparison: July 01, 2019. 3 view right ankle demonstrates new bimalleolar acute fractures with moderate lateral talar angulation/subluxation and soft tissue swelling. Elsewhere stable osteopenia, heel spurs, and scattered vascular calcifications.
--- NOTE | 2021-04-04 08:40 | XRAY ---
Indication: Post reduction. Comparison: Taken early in the day. 3 view right ankle demonstrates new posterior splint material. Remaining ankle grossly unchanged again with bimalleolar fractures, lateral talar angulation/subluxation, soft tissue swelling, osteopenia, heel spurs, and vascular calcifications.
== END 2021-04-03 23:29 | disposition short-term general hospital (02) ==
LOC: ED 20:55
DX: S82.841A Displaced bimalleolar fracture of right lower leg, initial encounter for closed fracture (principal); S90.01XA Contusion of right ankle, initial encounter; W10.9XXA Fall (on) (from) unspecified stairs and steps, initial encounter; X50.0XXA Overexertion from strenuous movement or load, initial encounter; Z79.899 Other long term (current) drug therapy; I25.10 Atherosclerotic heart disease of native coronary artery without angina pectoris; E78.00 Pure hypercholesterolemia, unspecified; E11.9 Type 2 diabetes mellitus without complications
CPT/HCPCS: 29515; 36000; 73610; 96374; 96375; 99285; J2405; J3010